=== PATIENT | male | born 1970 | race Caucasian/White ===

== ENCOUNTER → 2016-06-17 | Outpatient (CLI) | payer BC ==
--- NOTE | 2016-06-17 09:51 | DIAGNOSTIC IMAGING REPORT ---
CHEST 2 VIEWS ROUTINE HISTORY: Atypical chest pain. COMPARISON: Chest 11/12/2013. FINDINGS: The lungs are clear. Cardiac silhouette is normal in size. No pleural effusions. No pneumothorax. Prior cholecystectomy. IMPRESSION: No acute process. Electronically signed by: Antonino Beyer M.D. 06/17/2016 9:49 AM Dictated Date/Time: 06/17/2016 9:47 AM
== END | disposition home or self-care (01) ==
LOC: C.RAD1850 09:34
PROVIDERS: ATTEND Family Medicine
DX: R07.9 Chest pain, unspecified (principal)

== ENCOUNTER → 2017-05-29 | Day surgery (SDC) | payer BC, OTHER ==
[2017-05-02 13:42] VITALS: Ht 185.4 cm; Wt 109.1 kg
[~2017-05-29] VITALS: Ht 185.4 cm; Wt 109.1 kg
[~2017-05-29] MED LIST: BUPIVACAINE 0.25% 2.5MG/ML PF 10 ML VIAL ONE; IOPAMIDOL INJ 61% 15 ML VIAL ONE; LIDOCAINE HCL 1% MPF 5 ML VIAL ONE; METHYLPREDNISOLONE ACETATE 80 MG/ML VIAL ONE
--- NOTE | 2017-05-29 13:06 | History & Physical Bridge - [place] ---
H&P Re-Evaluation Bridge Note: I have examined the patient, reviewed the History & Physical and in the interval since the performance of the History & Physical I have noted the following changes of clinical significance: No changes noted
[2017-05-29 13:27] VITALS: TEMP 36.7
--- NOTE | 2017-05-29 13:31 | Discharge Instructions ---
Discharge Instructions Date of Service May 29, 2017. Visit Reason for Visit: Low Back Pain Discharge Discharge Diagnosis / Problem: low back pain Discharge Goals Goal(s): Decrease discomfort, Improve function Activity Recommendations Activity Limitations: resume your previous activity Anesthesia . Post Anesthesia Instructions: If you have had General Anesthesia or IV Sedation: * Do not drive today. * Resume driving when surgeon permits. * Do not make important decisions or sign legal documents today. * Call surgeon for: 1. Temperature elevations greater than 101 degrees F. 2. Uncontrollable pain. 3. Excessive bleeding. 4. Persistent nausea and vomiting. 5. Medication intolerance (nausea, vomiting or rash). * For nausea and vomiting use only clear liquids such as: tea, soda, bouillon until nausea subsides, then gradually increase diet as tolerated. * If you have any concerns or questions, call your surgeon's office. If physician is unavailable and it is an emergency, call 911 or go to the nearest emergency room. . Diet Recommendations Recommended Home Diet: resume previous diet Procedures Procedures Performed: Right L5-S1 Facet Joint Injection Pending Studies Studies pending at discharge: no Medical Emergencies . Who to Call and When: Medical Emergencies: If at any time you feel your situation is an emergency, please call 911 immediately. . Non-Emergent Contact Non-Emergency issues call your: Specialist . . "Provider Documentation" section prepared by Ricky Domingo. .
[2017-05-29 13:34] VITALS: BP 149/96; PULSE 86; O2SAT 97
--- NOTE | 2017-05-29 13:40 | OPERATIVE REPORT ---
DATE OF OPERATION: 05/29/2017 PREOPERATIVE DIAGNOSIS: Right L5-S1 facet arthropathy. POSTOPERATIVE DIAGNOSIS: Same. PROCEDURE: Right L5-S1 facet joint injection under fluoroscopic guidance. INDICATIONS: The patient is a 47-year-old white male who has received a facet joint injection in the past with good results; however, the pain has returned and is problematic to him. He presents today for an injection to provide him with relief of axial back pain that is debilitating at times. PHYSICAL EXAMINATION: GENERAL: Pleasant male seated comfortably. MUSCULOSKELETAL: His lumbar paraspinal muscles were palpated and noted be nontender. He had point tenderness to palpation of the L5-S1 facet, which was worse with extension and extension rotation. He had normal lower extremity strength and intact sensation distally. CONSENT: Verbal and written consent was obtained from the patient. Risks and benefits were reviewed. Risks include, but are not limited to abscess and allergic reaction. The patient wishes to proceed. DESCRIPTION OF PROCEDURE: The patient was taken back to the special procedures room of the [facility], where he was maintained in a prone position. Backside was cleansed with Betadine x3 and a dry sterile dressing was applied. Fluoroscope was used to identify the L5-S1 intralaminar region. It was then moved to a 25-degree oblique view on the right side. The facet joint was then easily outlined. Overlying skin was anesthetized with 4 mL of lidocaine 1% with a 25-gauge 1-1/2 inch needle. A 25-gauge 3-1/2 inch spinal needle was then directed under fluoroscopic guidance into the joint. Isovue-300 contrast 0.25 mL was injected in which demonstrated intraarticular uptake. He then underwent injection after negative aspiration of 40 mg of Depo-Medrol and 0.5 mL and 0.5 mL of bupivacaine 0.25%. Injection was fairly well tolerated. The patient was starting to have a mild vagal reaction with a little drop in heart rate; however, this resolved quickly. DISPOSITION: 1. The patient was taken out into the discharge recovery area, where he will be discharged home once discharge criteria have been met. 2. Follow up in the [facility] office in 2-4 weeks. I attest to the content of the Intraoperative Record and any orders documented therein. Any exception s are noted below.
== END | disposition home or self-care (01) ==
LOC: X.SURG 12:26
PROVIDERS: ATTEND Physical Medicine & Rehabilitation
DX: M46.96 Unspecified inflammatory spondylopathy, lumbar region (principal); K57.30 Diverticulosis of large intestine without perforation or abscess without bleeding; K21.0 Gastro-esophageal reflux disease with esophagitis; K44.9 Diaphragmatic hernia without obstruction or gangrene; Z90.49 Acquired absence of other specified parts of digestive tract; Z87.442 Personal history of urinary calculi